=== PATIENT | female | born 1980 | race Caucasian/White ===

== ENCOUNTER 2020-02-19 19:17 | Emergency (ER) | payer OTHER ==
[~2020-02-19] VITALS: Ht 172.7 cm; Wt 113.4 kg
[~2020-02-19 19:17] MED LIST: EFFEXOR XR150 MG PO
[2020-02-19] MEDS ORDERED: LOSARTAN-HCTZ1 EAC3 PO (19:30)
[2020-02-19] MEDS ORDERED: IBUPROFEN 800800 MG PO (20:34)
[2020-02-19 20:43] VITALS: BP 154/94
== END 2020-02-19 20:44 | disposition home or self-care (01) ==
LOC: M.ERS 19:17
DX: S50.01XA Contusion of right elbow, initial encounter (principal); I10 Essential (primary) hypertension; W07.XXXA Fall from chair, initial encounter; Y93.89 Activity, other specified; Y92.89 Other specified places as the place of occurrence of the external cause; Y99.8 Other external cause status